=== PATIENT | female | born 1960 | race Caucasian/White ===

== ENCOUNTER 2019-12-09 10:53 | Emergency (ER) | payer OTHER, BC, SELFPAY ==
--- NOTE | ~2019-12-09 | XR_ITS ---
XR shoulder LT min 2V 12/09/2019 11:35 Indication: Left shoulder pain Procedure: 3 views left shoulder Comparison: No prior studies for comparison. Findings: There is a distal clavicular fracture which is comminuted. Acromioclavicular joint alignmen t is normal. Glenohumeral joint within normal limits. Visualized lung parenchyma is unremarkable. No other fractures. Impression: 1: Comminuted mildly displaced distal left clavicular fracture with normal alignment of the acromiocl avicular joint. Reviewed, dictated and finalized at location B. Impression: 1: Comminuted mildly displaced distal left clavicular fracture with normal alig nment of the acromioclavicular joint.
--- NOTE | ~2019-12-09 | XR_ITS ---
XR ankle LT min 3V 12/09/2019 11:34 INDICATION: Left ankle pain after trauma PROCEDURE: 4 views left ankle COMPARISON: No prior studies for comparison. FINDINGS: Fracture, dislocation or subluxation is not identified. Ankle mortise intact. The soft tiss ues appear within normal limits. No foreign bodies are identified. IMPRESSION: 1: NO ACUTE BONE OR JOINT ABNORMALITY IDENTIFIED. Reviewed, dictated and finalized at location B.
[2019-12-09 11:19] VITALS: BP 157/91; PULSE 92; RESP 20; TEMP 36.8; O2SAT 99
--- NOTE | 2019-12-09 11:19 | WC.ED.TRAUMA ---
HPI - Trauma General Chief Complaint: Extremity Injury, Upper Stated Complaint: left shoulder injury Source: patient and RN notes reviewed Mode of arrival: wheelchair Limitations: no limitations History of Present Illness HPI narrative: This is a 59-year-old white female that presented to the urgent care today complaining of left shoulder pain and left foot pain post fall. According to patient she was riding her horse who tripped and after he tripped she flew off of the horse and landed on her left shoulder. She Also has left foot pain she believes that the horse may have stepped on her foot. She did hitting her head she noted that she had on a helmet and did not lose consciousness. The patient denies SOB, CP, palpitation, extremity numbness, lightheadedness, dizziness, constipation, diarrhea, chills, or fever. MD complaint: injury Loss of Consciousness: no Location - Extremities: Right: shoulder and foot Related Data Home Medications Medication Instructions Recorded Confirmed alendronate [Fosamax] 70 mg PO WEEKLY 12/09/19 12/09/19 Allergies Allergy/AdvReac Type Severity Reaction Status Date / Time miconazole Allergy Rash Verified 12/09/19 11:18 [From Neosporin AF] Review of Systems Review of Systems: Narrative: CONSTITUTIONAL: Denies fever, chills, sweats. EYES: Denies visual changes, redness, discharge. ENT: Denies rhinorrhea, congestion, sore throat, otalgia. CARDIOVASCULAR: Denies chest pain, palpitations, edema. RESPIRATORY: Denies dyspnea, wheezing, cough GASTROINTESTINAL: Denies abdominal pain, nausea, vomiting, diarrhea. GENITOURINARY: Denies dysuria, hematuria, abnormal discharge SKIN: Denies rash or itching. MUSCULOSKELETAL: Left shoulder pain and left foot pain NEUROLOGIC: Denies numbness, or focal weakness. PSYCHIATRIC: Denies anxiety or depression. PMFSH Social History Social History Gender identity (if verbalized by the patient): Female Exam Narrative: Exam Narrative: GENERAL: This is a well-nourished, well-developed patient, in no apparent distress. HEAD: normocephalic, atraumatic. EYES: PERRL. Sclera clear/white. Vision is grossly intact. EARS: External ears normal, auditory canals clear and without drainage, TMs normal without perforation. Hearing grossly intact. NOSE: External nose normal with no obvious nasal discharge, nares without redness, no rhinorrhea. THROAT: Mucous membranes moist, posterior pharynx clear. NECK: Neck supple, non-tender without lymphadenopathy, masses or thyromegaly. CARDIOVASCULAR: Regular rate and rhythm without murmurs, gallops, or rubs. RESPIRATORY: Clear to auscultation. Breath sounds equal bilaterally. No wheezes, rales, or rhonchi. GASTROINTESTINAL: Abdomen soft, non-tender, nondistended. Bowel sounds are active. No hepato-splenomegaly, or palpable masses. No guarding. SKIN: warm, intact with no suspicious lesions or rash, good texture and turgor. NEURO: awake, alert, and oriented to person, place and time. There were no obvious focal neurologic abnormalities. Steady gait EXTREMITIES: limited ROM to the left shoulder , tenderness to her left foot and shoulder. Patient able to flex and extent elbow, and wrist. able to shrug shoulder with pain and able to adbuct should with pain.pulse present in left extremity BACK: Nontender without deformity or crepitance. No flank tenderness. Course Vital Signs Vital signs: Vital Signs Temperature 98.2 F 12/09/19 11:19 Pulse Rate 92 12/09/19 11:19 Respiratory Rate 12/09/19 11:19 Blood Pressure 157/91 H 12/09/19 11:19 Pulse Oximetry 99 12/09/19 11:19 Temperature 98.2 F 12/09/19 11:19 Pulse Rate 92 12/09/19 11:19 Respiratory Rate 12/09/19 11:19 Blood Pressure 157/91 H 12/09/19 11:19 Pulse Oximetry 99 12/09/19 11:19 Procedures Orthopedic Splinting/Casting left arm splint: Splinting/Casting Date: 12/09/19 Side: left Upper Extremity Injury Location: [facility]
== END 2019-12-09 12:06 | disposition home or self-care (01) ==
PROVIDERS: Emergency Provider Nurse Practitioner
DX: S42.032A Displaced fracture of lateral end of left clavicle, initial encounter for closed fracture (principal); V80.010A Animal-rider injured by fall from or being thrown from horse in noncollision accident, initial encounter; M81.0 Age-related osteoporosis without current pathological fracture
CPT/HCPCS: 73030; 73610; 99204; A4565; G0463